=== PATIENT | male | born 1960 | race Caucasian/White ===

== ENCOUNTER 2021-01-18 12:29 | Outpatient (CLI) | payer OTHER | END 2021-01-18 12:30 | disposition home or self-care (01) | LOC: TBSIIMAG 12:29 | PROVIDERS: ATTEND Physician Assistant | DX: R97.20 Elevated prostate specific antigen [PSA] (principal) | CPT/HCPCS: 72197 ==

== ENCOUNTER → 2021-02-28 | Day surgery (SDC) | payer OTHER ==
[2021-03-01 09:53] LABS: SARS-CoV-2 PCR by NAA Not Detected (NotDetected)
== END ==
LOC: LABBT 13:52
PROVIDERS: ATTEND Urology
DX: Z01.818 Encounter for other preprocedural examination (principal); R97.20 Elevated prostate specific antigen [PSA]; Z20.822 Contact with and (suspected) exposure to COVID-19
CPT/HCPCS: 93005; 93010; U0003; U0005

== ENCOUNTER 2021-03-03 08:12 | Day surgery (SDC) | payer OTHER ==
[2021-02-22 15:20] VITALS: BMI 25.1
[2021-03-03] MEDS ORDERED: Fentanyl 100 MCG/2 ML VIAL ONE (10:35)
[2021-03-03] MEDS ORDERED: Lidocaine 1% (PF) 30 ML VIAL ONE (10:50)
[2021-03-03] MEDS ORDERED: PROPOFOL 20 ML ONE (10:52)
[2021-03-03] MEDS ORDERED: cefTRIAXone\\ROCEPHIN 2 GM VIAL ONE (11:20)
[2021-03-03] MEDS ORDERED: Sodium Chloride 0.9% 100 ML ONE (11:20)
== END 2021-03-03 13:36 | disposition home or self-care (01) ==
LOC: SDC 08:12
PROVIDERS: ATTEND Urology
PROC: 0VB03ZX Excision of Prostate, Percutaneous Approach, Diagnostic (ICD-10-PCS; principal; 2021-03-03)
DX: C61 Malignant neoplasm of prostate (principal); K21.9 Gastro-esophageal reflux disease without esophagitis; Z79.899 Other long term (current) drug therapy
CPT/HCPCS: G0416; J0696; J2001; J2704; J3010; J3490